=== PATIENT | female | born 1945 | race Caucasian/White ===

== ENCOUNTER 2018-12-07 16:08 | Outpatient (CLI) | payer MEDICARE, SELFPAY ==
[2018-12-07 16:33] LABS: HCT 39.4 % (36.0-46.0); Mean Corpuscular Hemoglobin 30.7 pg (27.0-33.0); Mean Corpuscular Volume 92.9 fL (80-95); Mean Platelet Volume 9.5 fL (8.0-11.0); Platelet Count 297 x1000/uL (130-400); RBC 4.24 m/cumm (4.00-5.20); RBC Distribution Width 13.5 % (11.7-14.6); White Blood Cell Count 7.16 k/cumm (4.4-10.8)
[2018-12-07 17:48] LABS: ALT 24 U/L (12-78); AST 17 U/L (15-37); Albumin 3.7 g/dL (3.4-5.0); Alkaline Phosphatase 66 U/L (46-116); BUN 22 mg/dL (7-18); Bilirubin, Total 0.3 mg/dL (0.2-1.0); CREATININE 1.24 mg/dL (0.55-1.02); Calcium 9.5 mg/dL (8.5-10.1); Chloride 103 mmol/L (98-107); Glucose 90 mg/dL (70-100); Potassium 3.7 mmol/L (3.5-5.1); Sodium 141 mmol/L (136-145); TSH 0.54 uIU/mL (0.358-3.74); Total Protein 7.4 g/dL (6.4-8.2)
== END 2018-12-07 16:28 ==
PROVIDERS: PCP Emergency Medicine; Visit Provider Emergency Medicine
DX: C34.90 Malignant neoplasm of unspecified part of unspecified bronchus or lung (principal); E03.9 Hypothyroidism, unspecified
CPT/HCPCS: 36415; 80053; 85027; 84443

== ENCOUNTER 2019-08-15 10:42 | Outpatient (CLI) | payer MEDICARE, SELFPAY ==
--- NOTE | 2019-08-15 10:10 | DI.RAD_ITS ---
EXAM: Rt hip and pelvis INDICATION: Hip pain, arthralgia of hip, m25.559,m25.50 COMPARISON: No exams were available for comparison TECHNIQUE: 2D digital imaging was performed. FINDINGS: There is mild narrowing of the right hip joint. Minimal periarticular hypertrophic spurring is identi fied. The findings are consistent with mild DJD.
--- NOTE | 2019-08-15 10:58 | DI.RAD_ITS ---
EXAM: XR KNEE LT 3V AP,LAT,MATT INDICATION: knee pain M25.50 PAIN IN JOINT. COMPARISON: No exams were available for comparison TECHNIQUE: 2D digital imaging was performed. FINDINGS: There is some narrowing of both the medial and lateral tibiofemoral joint. There is minimal periarti cular hypertrophic spurring. There is no evidence of a joint effusion. IMPRESSION: Mild degenerative changes are identified.
[2019-08-15 12:08] LABS: Abs Immature Grans 0.01 k/cumm (0.0-0.09); Absolute Basophil Count 0.04 k/cumm (0.0-0.2); Absolute Eosinophil Count 0.13 k/cumm (0.0-0.7); Absolute Lymphocyte Count 1.41 k/cumm (1.2-3.4); Absolute Monocyte Count 0.49 k/cumm (0.11-0.7); Absolute Neutrophil Count 2.89 k/cumm (1.2-6.7); Basophils % 0.8; Eosinophils % 2.6; HCT 37.9 % (36.0-46.0); HGB 12.5 g/dL (12.0-15.5); Immature Grans % 0.2; Lymphocytes % 28.4; Mean Corpuscular Hemoglobin 30.5 pg (27.0-33.0); Mean Corpuscular Volume 92.4 fL (80-95); Mean Platelet Volume 9.5 fL (8.0-11.0); Monocytes % 9.9; Neutrophils % 58.1; Platelet Count 305 x1000/uL (130-400); RBC Distribution Width 13.6 % (11.7-14.6); White Blood Cell Count 4.97 k/cumm (4.4-10.8)
[2019-08-15 12:24] LABS: ALT 29 U/L (14-59); AST 20 U/L (15-37); Albumin 3.8 g/dL (3.4-5.0); Alkaline Phosphatase 81 U/L (46-116); Anion Gap 10.3 mmol/L (3-11); BUN 29 mg/dL (7-18); Bilirubin, Total 0.4 mg/dL (0.2-1.0); C-Reactive Protein 0.31 mg/dL (0.0-0.3); CO2 24.7 mmol/L (21.0-32.0); CREATININE 1.18 mg/dL (0.55-1.02); Calcium 8.9 mg/dL (8.5-10.1); Chloride 105 mmol/L (98-107); Estimated GFR 44.77 (mL/min/1.73m2); Glucose 96 mg/dL (70-100); Sodium 140 mmol/L (136-145); Total Protein 7.3 g/dL (6.4-8.2); Uric Acid 5.9 mg/dL (2.6-6.0)
[2019-08-15 13:52] LABS: ESR 25 mm/hr (0-30)
[2019-08-16 12:30] LABS: Lyme Ab w Rflx to Lyme Confirm Negative
== END 2019-08-15 11:02 ==
PROVIDERS: PCP Emergency Medicine; Visit Provider Emergency Medicine
DX: M25.551 Pain in right hip (principal); M16.11 Unilateral primary osteoarthritis, right hip; M25.562 Pain in left knee; M17.12 Unilateral primary osteoarthritis, left knee
CPT/HCPCS: 36415; 73562; 80053; 85652; 73502; 84550; 85025; 86140; 86618

== ENCOUNTER 2019-08-29 11:33 | Outpatient (REF) | payer MEDICARE, SELFPAY ==
[2019-08-29 13:28] LABS: Clarity CLOUDY; Source L KNEE
[2019-08-29 13:29] LABS: Nucleated Cells 567 /MM3 (0-0)
[2019-08-29 13:39] LABS: Mononuclear Cells 84 % (0-0)
[2019-08-29 13:40] LABS: Other Cells 2 0 (0-0); Polynuclear Cells 14 % (0-0)
[2019-08-31 16:08] LABS: Specimen Source Synovial fluid
== END 2019-08-29 11:53 ==
LOC: LBN 11:33
PROVIDERS: PCP Emergency Medicine; Visit Provider Emergency Medicine
DX: M25.462 Effusion, left knee (principal); M17.12 Unilateral primary osteoarthritis, left knee
CPT/HCPCS: 87070; 87205; 87476; 89051

== ENCOUNTER 2019-08-29 11:39 | Outpatient (CLI) | payer MEDICARE, SELFPAY ==
--- NOTE | 2019-08-29 11:30 | DI.RAD_ITS ---
EXAM: XR CHEST 2V PA LATERAL INDICATION: ? recurrent lung cancer C34.90., H/O LUNG METS AND PRIMARY COMPARISON: CHEST 2 VIEWS PA,LAT from 09/23/2016 TECHNIQUE: 2D digital imaging was performed. FINDINGS: The lungs are well expanded and free of infiltrate. There is some thickening of the major fissures s uperiorly. No mass is seen. No evidence of a pleural effusion. The cardiovascular structures are in tact. IMPRESSION: No evidence of acute cardiopulmonary disease. If there is any further clinical question regarding the status of this patient, then further assessment with chest CT is recommended.
[2019-08-29 13:06] LABS: ALT 29 U/L (14-59); AST 18 U/L (15-37); Albumin 3.6 g/dL (3.4-5.0); Alkaline Phosphatase 67 U/L (46-116); Anion Gap 11.1 mmol/L (3-11); BUN 23 mg/dL (7-18); Bilirubin, Total 0.5 mg/dL (0.2-1.0); C-Reactive Protein 1.02 mg/dL (0.0-0.3); CO2 27.9 mmol/L (21.0-32.0); CREATININE 1.11 mg/dL (0.55-1.02); Chloride 103 mmol/L (98-107); Estimated GFR 48.05 (mL/min/1.73m2); Glucose 100 mg/dL (70-100); Potassium 3.5 mmol/L (3.5-5.1); Sodium 142 mmol/L (136-145); Total Protein 7.1 g/dL (6.4-8.2)
[2019-08-30 09:23] LABS: Cyclic Citrullinated Peptide <2.5 U/mL (<5.0)
[2019-08-30 10:26] LABS: Lyme Ab w Rflx to Lyme Confirm Negative
[2019-08-30 11:54] LABS: Rheumatoid Factor 15 IU/mL (<12.5)
== END 2019-08-29 11:59 ==
PROVIDERS: PCP Emergency Medicine; Visit Provider Emergency Medicine
DX: C34.90 Malignant neoplasm of unspecified part of unspecified bronchus or lung (principal); M19.90 Unspecified osteoarthritis, unspecified site; M25.50 Pain in unspecified joint
CPT/HCPCS: 36415; 80053; 86200; 71046; 86140; 86431; 86618

== ENCOUNTER 2019-09-05 01:45 | Outpatient (CLI) | payer MEDICARE, SELFPAY ==
--- NOTE | 2019-09-05 09:37 | DI.NM_ITS ---
EXAM: NM BONE SCAN WHOLE BODY GRP CLINICAL HISTORY: Polyarthritis with history of lung cancer RUL, M19.90, unspecified osteoarthritis, right hip and left knee pain x months, fractured wrist many years ago, left lower filling 2 weeks ag o. TECHNIQUE: Injected Dose: 23 mCi Tc-99m MDP Delayed Images: 2-3 hours. COMPARISON: SINUS CT WITHOUT CONTRAST from 12/05/2014 CHEST WITHOUT CONTRAST from 12/24/2016 XR KNEE LT 3V AP,LAT,MATT from 08/15/2019 XR HIP RT COMPLETE AP PELVIS from 08/15/2019 FINDINGS: There are multiple areas of mildly increased activity in the thoracic and lumbar spine consistent wit h degenerative changes noted on previous exams. There is a small area of increased activity in the le ft side of the lower mandible anteriorly consistent with recent dental work. There is increased activ ity in the region of the left patella, likely reflecting degenerative changes. The activity in the hi ps appears normal. There is a focus of increased activity in the upper cervical spine. No prior imagi ng is available of this area. The findings may be secondary to degenerative changes. Bilateral renal excretion is identified. . IMPRESSION: No definite evidence of metastatic disease. There is increased activity in the upper cervical spine, which could be secondary to degenerative change. Plain films could be performed for further evaluatio n.
== END 2019-09-05 02:05 ==
PROVIDERS: PCP Emergency Medicine; Visit Provider Emergency Medicine
DX: M19.90 Unspecified osteoarthritis, unspecified site (principal); M25.551 Pain in right hip; M25.562 Pain in left knee; M47.815 Spondylosis without myelopathy or radiculopathy, thoracolumbar region; M17.12 Unilateral primary osteoarthritis, left knee; Z85.118 Personal history of other malignant neoplasm of bronchus and lung
CPT/HCPCS: 78306

== ENCOUNTER 2020-05-06 00:59 | Outpatient (CLI) | payer MEDICARE, SELFPAY ==
[2020-05-06 09:28] LABS: Abs Immature Grans 0.01 k/cumm (0.0-0.09); Absolute Basophil Count 0.03 k/cumm (0.0-0.2); Absolute Eosinophil Count 0.13 k/cumm (0.0-0.7); Absolute Lymphocyte Count 1.45 k/cumm (1.2-3.4); Absolute Monocyte Count 0.57 k/cumm (0.11-0.7); Absolute Neutrophil Count 2.94 k/cumm (1.2-6.7); Basophils % 0.6; Eosinophils % 2.5; HCT 38.7 % (36.0-46.0); Immature Grans % 0.2 %; Lymphocytes % 28.3; Mean Corp. HGB Concentration 33.6 g/dL (32.0-36.0); Mean Corpuscular Hemoglobin 30.8 pg (27.0-33.0); Mean Corpuscular Volume 91.7 fL (80-95); Mean Platelet Volume 9.8 fL (8.0-11.0); Monocytes % 11.1; Neutrophils % 57.3; Platelet Count 293 x1000/uL (130-400); RBC 4.22 m/cumm (4.00-5.20); RBC Distribution Width 13.8 % (11.7-14.6); White Blood Cell Count 5.13 k/cumm (4.4-10.8)
[2020-05-06 10:51] LABS: ALT 27 U/L (14-59); AST 21 U/L (15-37); Albumin 3.9 g/dL (3.4-5.0); Alkaline Phosphatase 81 U/L (46-116); Anion Gap 9.1 mmol/L (3-11); BUN 26 mg/dL (7-18); Bilirubin, Total 0.5 mg/dL (0.2-1.0); C-Reactive Protein 0.16 mg/dL (0.0-0.3); CO2 27.9 mmol/L (21.0-32.0); Calcium 9.1 mg/dL (8.5-10.1); Chloride 103 mmol/L (98-107); Estimated GFR 36.76 (mL/min/1.73m2); Glucose 92 mg/dL (74-106); Potassium 3.7 mmol/L (3.5-5.1); Sodium 140 mmol/L (136-145); Total Protein 7.4 g/dL (6.4-8.2)
[2020-05-06 11:08] LABS: ESR 19 mm/hr (0-30)
== END 2020-05-06 01:19 ==
PROVIDERS: PCP Emergency Medicine; Visit Provider Emergency Medicine
DX: I10 Essential (primary) hypertension (principal); E03.9 Hypothyroidism, unspecified; R53.83 Other fatigue
CPT/HCPCS: 36415; 80053; 85652; 84443; 85025; 86140

== ENCOUNTER 2020-12-16 15:03 | Outpatient (REF) | payer MEDICARE, SELFPAY ==
[2020-12-16 14:29] LABS: Anion Gap 9.9 mmol/L (3-11); BUN 22 mg/dL (7-18); CO2 26.1 mmol/L (21.0-32.0); CREATININE 1.13 mg/dL (0.55-1.02); Calcium 9.3 mg/dL (8.5-10.1); Chloride 103 mmol/L (98-107); Estimated GFR 46.94 (mL/min/1.73m2); Glucose 93 mg/dL (74-106); Potassium 3.7 mmol/L (3.5-5.1); Sodium 139 mmol/L (136-145)
== END 2020-12-16 15:23 ==
LOC: LBN 15:03
PROVIDERS: PCP Emergency Medicine; Visit Provider Emergency Medicine
DX: I10 Essential (primary) hypertension (principal)
CPT/HCPCS: 80048

== ENCOUNTER 2022-04-12 04:12 | Outpatient (CLI) | payer MEDICARE, SELFPAY ==
[2022-04-12 12:54] LABS: Bilirubin Negative (Negative); Blood Negative (Negative); Clarity Clear (Clear); Glucose Negative (Negative); Ketones Negative (Negative); Leukocyte Esterase Trace (Negative); Nitrite Negative (Negative); Urobilinogen 0.2 EU/dL (Up TO 0.2); pH 5.5 (5-8)
[2022-04-12 13:03] LABS: Bacteria Few HPF (Negative); C & S Indicated? No/Sq. Contamination; Casts Negative LPF (Negative); Crystals Negative HPF (Negative); Epithelial Cells Moderate HPF (Negative); Mucus Trace (Negative); Other Cells Negative (Negative); RBC 0-2 HPF (0-2)
[2022-04-12 13:10] LABS: HCT 37.3 % (36.0-46.0); HGB 12.1 g/dL (11.2-15.7); MCH 30.2 pg (27.0-33.0); MCHC 32.4 % (32.0-36.0); MCV 93 fL (80-95); Platelet Count 260 10^3/uL (130-400); RBC 4.01 10^6/uL (3.93-5.22); RDW 13.5 % (11.7-14.6); WBC 6.63 10^3/uL (4.4-10.8)
[2022-04-12 13:22] LABS: ALT 30 U/L (14-59); AST 27 U/L (15-37); Albumin 3.7 g/dL (3.4-5.0); Alkaline Phosphatase 63 U/L (46-116); Anion Gap 8.9 mmol/L (3-11); BUN 25 mg/dL (7-18); Bilirubin, Total 0.6 mg/dL (0.2-1.0); CO2 27.1 mmol/L (21.0-32.0); CREATININE 1.2 mg/dL (0.55-1.02); Chloride 106 mmol/L (98-107); Estimated GFR 43.68 (mL/min/1.73m2); Glucose 97 mg/dL (74-106); Lipase 150 U/L (73-393); Potassium 3.8 mmol/L (3.5-5.1); Sodium 142 mmol/L (136-145); Total Protein 7.1 g/dL (6.4-8.2)
[2022-04-12 17:06] LABS: Calculated LDL 120 mg/dL (<100); Cholesterol 225 mg/dL (<200); HDL Cholesterol 87 mg/dL (40-60); Triglyceride 92 mg/dL (<150)
== END 2022-04-12 04:13 | disposition home or self-care (01) ==
LOC: LOS 04:12
PROVIDERS: PCP Family Medicine; Visit Provider Family Medicine
DX: E78.5 Hyperlipidemia, unspecified (principal); I10 Essential (primary) hypertension; R10.9 Unspecified abdominal pain; R82.998 Other abnormal findings in urine
CPT/HCPCS: 36415; 80053; 80061; 83690; 85027; 81003; 81015

== ENCOUNTER → 2022-05-13 10:52 | Outpatient (CLI) | payer MEDICARE, SELFPAY ==
[2022-05-13] MEDS: Barium Sulfate 2% W/V-Berry Smoothie 450 ML BTL PO (13:41)
--- NOTE | 2022-05-13 13:45 | DI.CT_ITS ---
Exam(s) CT ABDOMEN PELVIS WO EXAM: CT ABDOMEN PELVIS WO CLINICAL HISTORY: diverticulitis, K57.92. TECHNIQUE: Imaging Protocol: Axial computed tomography images with coronal and sagittal reformatted images were created and reviewed. Oral: yes, barium COMPARISON: No exams were available for comparison FINDINGS: ABDOMEN: Lung Bases: Normal where visualized. Liver: Normal density. No measurable mass. Gallbladder and biliary tract: Status post cholecystectomy. No radiodense calculus or dilation. Stom ach: Small hiatal hernia. Pancreas: Normal density, no abnormal calcifications or inflammatory process. Spleen: Normal. Kidneys: Normal size, contour and axis. No radiodense stones or obstructive uropathy. No masses seen. Adrenal glands: No masses seen. Lymph nodes: Within normal limits. Abdominal Aorta: Abdominal portion non-dilated. Atherosclerotic calcifications. PELVIS: Bladder: Symmetric distention, no gross wall thickening. Bowel: Diverticulosis throughout. Prominent diverticulosis in the sigmoid region. Some wall thicken ing in the sigmoid which could be secondary to muscular hypertrophy. No evidence of diverticulitis. No obstruction or bowel wall thickening. Peritoneal cavity: No ascites, collection or mesenteric inflammatory response. Reproductive organs: Status post hysterectomy. Bones: Severe degenerative disc changes as well as facet degenerative changes. No compression fractu res. No pelvic fractures. IMPRESSION: Severe diverticulosis in the sigmoid region. No CT evidence of diverticulitis. RADIATION DOSE DELIVERED: 763.25mGy.cm Total DLP DATA REPOSITORY: All CT scans at this facility are submitted to the National Radiology Data Registry (NRDR) Dose Index Registry (DIR) with the [employer] (ACR). RADIATION OPTIMIZATION: All CT scans at this facility use at least one of these dose optimization te chniques: automated exposure control; mA and/or kV adjustment per patient size (includes targeted exa ms where dose is matched to clinical indication); or iterative reconstruction.
== END ==
PROVIDERS: PCP Family Medicine; Visit Provider Physician Assistant
DX: K57.30 Diverticulosis of large intestine without perforation or abscess without bleeding (principal)
CPT/HCPCS: 74176

== ENCOUNTER 2022-05-17 03:38 | Outpatient (CLI) | payer MEDICARE, SELFPAY ==
[2022-05-17 12:40] LABS: Abs Immature Grans 0.02 10^3/uL (0.0-0.06); Absolute Basophil Count 0.04 10^3/uL (0.0-0.2); Absolute Eosinophil Count 0.37 10^3/uL (0.0-0.7); Absolute Lymphocyte Count 1.06 10^3/uL (1.2-3.4); Absolute Monocyte Count 0.73 10^3/uL (0.1-0.8); Absolute Neutrophil Count 3.25 10^3/uL (1.2-6.7); Basophils % 0.7; Eosinophils % 6.8; HGB 12.4 g/dL (11.2-15.7); Immature Grans % 0.4; Lymphocytes % 19.4; MCH 31.9 pg (27.0-33.0); MCHC 34.4 % (32.0-36.0); MCV 93 fL (80-95); MPV 10.2 fL (8.0-11.0); Monocytes % 13.3; Neutrophils % 59.4; Platelet Count 241 10^3/uL (130-400); RBC 3.89 10^6/uL (3.93-5.22); RDW 13.3 % (11.7-14.6); RDW-SD 45.7 fL; WBC 5.47 10^3/uL (4.4-10.8)
[2022-05-17 13:08] LABS: ALT 25 U/L (14-59); AST 24 U/L (15-37); Albumin 3.6 g/dL (3.4-5.0); Alkaline Phosphatase 59 U/L (46-116); Anion Gap 10.5 mmol/L (3-11); BUN 24 mg/dL (7-18); Bilirubin, Total 0.6 mg/dL (0.2-1.0); CO2 28.5 mmol/L (21.0-32.0); CREATININE 1.3 mg/dL (0.55-1.02); Calcium 8.9 mg/dL (8.5-10.1); Chloride 100 mmol/L (98-107); Estimated GFR 39.82 (mL/min/1.73m2); Glucose 93 mg/dL (74-106); Potassium 3.5 mmol/L (3.5-5.1); Sodium 139 mmol/L (136-145); Total Protein 7.3 g/dL (6.4-8.2)
== END 2022-05-17 03:39 | disposition home or self-care (01) ==
LOC: LOS 03:38
PROVIDERS: PCP Family Medicine; Visit Provider Physician Assistant
DX: K57.92 Diverticulitis of intestine, part unspecified, without perforation or abscess without bleeding (principal); R10.32 Left lower quadrant pain
CPT/HCPCS: 36415; 80053; 85025

== ENCOUNTER 2022-09-16 03:49 | Outpatient (CLI) | payer MEDICARE, SELFPAY ==
[2022-09-16 12:47] LABS: BUN 23 mg/dL (7-18); CREATININE 1.2 mg/dL (0.55-1.02); Calcium 9.3 mg/dL (8.5-10.1); Chloride 103 mmol/L (98-107); Estimated GFR 46.62 (mL/min/1.73m2); Glucose 95 mg/dL (74-106); Potassium 3.6 mmol/L (3.5-5.1); Sodium 139 mmol/L (136-145); TSH (W/Ref FT4) 0.58 uIU/mL (0.36-3.74)
[2022-09-16 12:48] LABS: Hemoglobin A1C 5.8 % (<5.7)
== END 2022-09-16 03:50 | disposition home or self-care (01) ==
LOC: LOS 03:49
PROVIDERS: PCP Family Medicine; Visit Provider Dermatology
DX: I10 Essential (primary) hypertension (principal); E04.2 Nontoxic multinodular goiter
CPT/HCPCS: 36415; 80048; 83036; 84443

== ENCOUNTER 2023-01-28 13:00 | Outpatient (CLI) | payer MEDICARE, SELFPAY ==
--- NOTE | 2023-01-28 13:40 | DI.CT_ITS ---
Exam(s) CT HEAD WO EXAM: CT HEAD WO CLINICAL HISTORY: headaches, R51.9. TECHNIQUE: Imaging Protocol: Axial computed tomography images with coronal and sagittal reformatted images were created and reviewed COMPARISON: CT SINUS CT WITHOUT CONTRAST from 12/05/2014 FINDINGS: Ventricles and Extra axial spaces: Normal in size and morphology for the patient's age. Hemorrhage: None. Cerebral parenchyma: There are areas of decreased attenuation in the white matter most consistent wit h small vessel ischemic disease. No evidence of an acute territorial infarct is seen. Midline shift: None. Brainstem/Cerebellum: Normal. Calvarium: Normal. Visualized Paranasal sinuses/Mastoids: Clear. Soft Tissues: Unremarkable. IMPRESSION: No acute intracranial process. RADIATION DOSE DELIVERED: 674.81mGy.cm Total DLP DATA REPOSITORY: All CT scans at this facility are submitted to the National Radiology Data Registry (NRDR) Dose Index Registry (DIR) with the [employer] (ACR). RADIATION OPTIMIZATION: All CT scans at this facility use at least one of these dose optimization te chniques: automated exposure control; mA and/or kV adjustment per patient size (includes targeted exa ms where dose is matched to clinical indication); or iterative reconstruction.
== END 2023-01-28 13:20 ==
LOC: DI 13:01
PROVIDERS: PCP Family Medicine; Visit Provider Physician Assistant
DX: R51.9 Headache, unspecified (principal)
CPT/HCPCS: 70450

== ENCOUNTER 2023-01-28 15:04 | Outpatient (REF) | payer MEDICARE, SELFPAY ==
[2023-01-28 13:36] LABS: Abs Immature Grans 0.02 10^3/uL (0.0-0.06); Absolute Basophil Count 0.08 10^3/uL (0.0-0.2); Absolute Eosinophil Count 0.15 10^3/uL (0.0-0.7); Absolute Lymphocyte Count 1.31 10^3/uL (1.2-3.4); Absolute Monocyte Count 0.71 10^3/uL (0.1-0.8); Absolute Neutrophil Count 4.48 10^3/uL (1.2-6.7); Basophils % 1.2; Eosinophils % 2.2; HCT 36.7 % (36.0-46.0); HGB 12.6 g/dL (11.2-15.7); Immature Grans % 0.3; Lymphocytes % 19.4; MCH 31.3 pg (27.0-33.0); MCHC 34.3 % (32.0-36.0); MCV 91 fL (80-95); MPV 10.8 fL (8.0-11.0); Monocytes % 10.5; Neutrophils % 66.4; Platelet Count 261 10^3/uL (130-400); RBC 4.03 10^6/uL (3.93-5.22); RDW 13.3 % (11.7-14.6); RDW-SD 45.2 fL; WBC 6.75 10^3/uL (4.4-10.8)
[2023-01-28 13:43] LABS: ESR 19 mm/hr (0-30)
== END 2023-01-28 15:05 | disposition home or self-care (01) ==
LOC: LBN 15:04
PROVIDERS: PCP Family Medicine; Visit Provider Physician Assistant
DX: R51.9 Headache, unspecified (principal); B02.23 Postherpetic polyneuropathy
CPT/HCPCS: 85652; 85025

== ENCOUNTER 2023-04-28 01:20 | Outpatient (CLI) | payer MEDICARE, SELFPAY ==
--- NOTE | 2023-04-28 08:15 | DI.US_ITS ---
Exam(s) US THYROID EXAM: US THYROID CLINICAL HISTORY: assess for change since 2017,f/u multinodular goiter,e04.2. TECHNIQUE: Ultrasound thyroid performed using standard protocol. COMPARISON: US THYROID ULTRASOUND from 08/19/2017 FINDINGS: ISTHMUS: 3.7 mm RIGHT LOBE: Size: 5.3 x 1.6 x 2.0 cm Echogenicity: Normal. Vascularity: Normal. Nodules: There is a 1.0 x 0.4 x 0.9 cm mixed cystic and solid isoechoic nodule with punctate echogeni c foci. It is consistent with a TI rads level 4 nodule. Due to its size, follow-up is recommended. There are other right thyroid nodules, but none requiring follow-up or FNA. LEFT LOBE: Size: 5.0 x 2.1 x 2.0 cm Echogenicity: Normal. Vascularity: Normal. Nodules: There is a 2.9 x 2.0 x 2.4 cm solid isoechoic nodule. No echogenic foci. Findings are cons istent with a TI rads level 3 nodule. Due to its size, FNA is recommended. There are other left thy roid nodules, but none requiring follow-up or FNA. OTHER FINDINGS: None. IMPRESSION: Multinodular thyroid gland. Please see the above discussion for complete details. DATA REPOSITORY:
== END 2023-04-28 01:40 ==
LOC: DI 01:20
PROVIDERS: PCP Family Medicine; Visit Provider Otolaryngology
DX: E04.2 Nontoxic multinodular goiter (principal)
CPT/HCPCS: 76536

== ENCOUNTER 2023-05-31 00:55 | Outpatient (CLI) | payer MEDICARE, SELFPAY ==
--- NOTE | 2023-05-31 07:30 | DI.RAD_ITS ---
Exam(s) XR KNEE LT 3V AP,LAT,MATT EXAM: XR KNEE LT 3V AP,LAT,MATT CLINICAL HISTORY: left knee pain, h/o OA,M17.12. TECHNIQUE: 2D digital imaging was performed. COMPARISON: No exams were available for comparison FINDINGS: Four views. No evidence of fracture but there are advanced degenerative changes in the lateral compartment and th ere is a loose body at the mid aspect of joint space noted which measures approximately 8 x 8 mm. Mi lder degenerative changes are noted in medial compartment. Joint effusion noted. IMPRESSION: Degenerative changes. Loose intra-articular body. Joint effusion DATA REPOSITORY: RADIATION DOSE DELIVERED:
== END 2023-05-31 01:15 ==
LOC: DI 00:56
PROVIDERS: PCP Family Medicine; Visit Provider Family Medicine
DX: M17.12 Unilateral primary osteoarthritis, left knee (principal); M25.462 Effusion, left knee
CPT/HCPCS: 73562

== ENCOUNTER → 2023-06-06 09:19 | Outpatient (BNVA) | payer MEDICARE, SELFPAY | PROVIDERS: PCP Family Medicine; Referring Provider Family Medicine | DX: M17.12 Unilateral primary osteoarthritis, left knee (principal) | CPT/HCPCS: 99203 ==

== ENCOUNTER 2023-06-07 00:48 | Outpatient (CLI) | payer MEDICARE, SELFPAY ==
--- NOTE | 2023-06-07 07:45 | DI.US_ITS ---
Exam(s) US NEEDLE LOCAL OTHER WO RAD EXAM: Left TR 4 thyroid nodule,ultrasound guided bx,e04.2 COMPARISON: US US THYROID from 04/28/2023 TECHNIQUE: Ultrasound performed using standard protocol. FINDINGS: Sonography was provided for Dr. Miguel during the performance of a left thyroid biopsy. Please refe r to the procedure report for complete details. DATA REPOSITORY:
--- NOTE | 2023-06-07 11:30 | PAPNONF_PTH ---
PATIENT: Gayathri Key LOC: [facility] U#:[id number] AGE/SX: 77/F ROOM: RE06/07/[address]: Roshan Miguel MD : 1945 BED: DIS: 06/07/2023 SPEC #: [id number] RECD: 06/07/23 12:12 STATUS: ARTURO RENess #: [id number] SARKIS: 06/07/23 11:[address]: Roshan Miguel DEPT: [facility] Cytology RECD BY: Pily Francisco ENTERED: 06/07/23 12:14 SP TYPE: MEHRDAD MARINO DR: Erika Hernandez Tissues: 1 - BODY FLUID CYTO-FINE NEEDLE [facility] Procedures: BODY FLUID CYTO-FINE NEEDLE ASPIRATE[facility] Comments: [id number] (PATH FNA CONSULT) (REFRIGERATED)
--- NOTE | 2023-06-07 11:55 | W.PROCNOTE ---
Date of service: 06/07/23 Time of Service: 11:56 Procedure Note Date of procedure: 06/07/23 Procedure: Ultrasound-guided FNA, left thyroid nodule, pathology present Surgeon/Proceduralist/Physician: Roshan Miguel Procedure Diagnosis: Left thyroid nodule Procedure Indications: Patient has a left-sided thyroid nodule meeting criteria for biopsy. Previous biopsy was benign. This was done several years ago. Options were explained to the patient regarding further management. She elected to undergo the above procedure. Consent was filled out and signed prior to the procedure Procedure Description: The patient was positioned in supine position and prepped and draped in appropriate fashion. Her head was slightly extended. Ultrasound was used to localize the 2.9 cm mixed cystic/solid nodule in the left and then 1% lidocaine with 1/100,000 epinephrine injected medial to the nodule. Multiple passes were made into the thyroid nodule using a 25-gauge needle. Specimens demonstrated large numbers of macrophages, but no specific thyroid cells when examined by pathology. The significant amount of the debris that was aspirated was cystic content and was placed into CytoLyt for further analysis. After discussion with the patient, the decision was made not to biopsy any further, as the nodule has previously been biopsied and found to be benign, and the samples today suggest just a degenerated nodule. 2 passes were made for potential Afirma testing. After ensuring adequate hemostasis, sterile dressing was applied and the patient was able to ambulate afterwards without difficulty. Her vital signs remained stable. She is aware that she should call with any signs of infection. She will remove the bandage later on today. She will call if she does not hear from me within 1 week. She had no further questions. She is comfortable with this plan.
== END 2023-06-07 01:08 ==
LOC: DI 00:50
PROVIDERS: PCP Family Medicine; Visit Provider Otolaryngology
DX: E04.2 Nontoxic multinodular goiter (principal)
CPT/HCPCS: 10005; 76942; 88104

== ENCOUNTER 2023-09-13 02:56 | Outpatient (CLI) | payer MEDICARE, SELFPAY ==
[2023-09-13 13:11] LABS: ALT 20 U/L (14-59); AST 17 U/L (15-37); Albumin 3.3 g/dL (3.4-5.0); Alkaline Phosphatase 61 U/L (46-116); Anion Gap 9.6 mmol/L (3-11); BUN 19 mg/dL (7-18); Bilirubin, Total 0.5 mg/dL (0.2-1.0); CO2 25.4 mmol/L (21.0-32.0); CREATININE 1.1 mg/dL (0.55-1.02); Calcium 9.3 mg/dL (8.5-10.1); Chloride 105 mmol/L (98-107); Estimated GFR 51.43 (mL/min/1.73m2); Glucose 90 mg/dL (74-106); Potassium 3.9 mmol/L (3.5-5.1); Sodium 140 mmol/L (136-145); Total Protein 7.2 g/dL (6.4-8.2)
== END 2023-09-13 02:57 | disposition home or self-care (01) ==
LOC: LOS 02:56
PROVIDERS: PCP Family Medicine; Visit Provider Family Medicine
DX: N18.30 Chronic kidney disease, stage 3 unspecified (principal); Z00.00 Encounter for general adult medical examination without abnormal findings
CPT/HCPCS: 36415; 80053

== ENCOUNTER → 2024-03-09 01:21 | Outpatient (CLI) | payer MEDICARE, SELFPAY ==
--- NOTE | 2024-03-09 07:30 | DI.CT_ITS ---
Exam(s) CT CHEST W EXAM: CT CHEST W CLINICAL HISTORY: f/u lung ca,c34.90 TECHNIQUE: Imaging Protocol: Axial computed tomography images with coronal and sagittal reformatted images were created and reviewed CONTRAST MATERIAL: Intravenous: Omnipaque 350 Contrast volume:structured data ml. FINDINGS: Thyroid: Decreased size of previously noted nodule in the lower pole of the left lobe. Pulmonary parenchyma: No consolidation. Stable 6 millimeter nodule in the left lower lobe. Mild emph ysematous changes. Postsurgical changes in the right upper lobe. Scattered granulomas. Tracheobronchial tree: No bronchiectasis or mucous plugging. Mediastinum and Lexi: No dominant adenopathy or fluid collection. Question of tiny hiatal hernia. Pleura: No effusion. No pneumothorax. Heart: The heart is not dilated. Coronary artery calcifications/stents. Aorta: Thoracic aorta non-dilated. Mild atherosclerotic changes. Upper abdomen: No acute findings. Status post cholecystectomy. Bones: No lytic or blastic lesions. No compression fractures. Severe degenerative changes in th e spine. Soft tissues: Unremarkable. IMPRESSION: No evidence recurrence mass. No adenopathy. Stable 6 millimeter nodule left lower lobe. RADIATION DOSE DELIVERED: 389.45mGy.cm Total DLP DATA REPOSITORY: All CT scans at this facility are submitted to the National Radiology Data Registry (NRDR) Dose Index Registry (DIR) with the [employer] (ACR). RADIATION OPTIMIZATION: All CT scans at this facility use at least one of these dose optimization te chniques: automated exposure control; mA and/or kV adjustment per patient size (includes targeted exa ms where dose is matched to clinical indication); or iterative reconstruction.
[2024-03-09 09:24] LABS: CREATININE 1.3 mg/dL (0.55-1.02); Estimated GFR 42.09 (mL/min/1.73m2)
[2024-03-09] MEDS: Omnipaque 350 MG/ML 500 ML BTL-Imaging package 100 ML IJ (09:47)
[2024-03-09] MEDS: Normal Saline - Diluent 50 ML VIAL IJ (09:48)
[2024-03-09] MEDS: Normal Saline Flush 10 ML SYR IJ (09:50)
== END ==
PROVIDERS: PCP Family Medicine; Visit Provider Family Medicine
DX: C34.92 Malignant neoplasm of unspecified part of left bronchus or lung (principal)
CPT/HCPCS: 71260; 82565

== ENCOUNTER → 2024-05-01 01:35 | Outpatient (CLI) | payer MEDICARE, SELFPAY ==
--- NOTE | 2024-05-01 08:00 | DI.US_ITS ---
Exam(s) US THYROID EXAM: US THYROID CLINICAL HISTORY: Assess for change,multinodular thyroid,e04.2. TECHNIQUE: Ultrasound thyroid performed using standard protocol. COMPARISON: US US THYROID from 04/28/2023 FINDINGS: ISTHMUS: 4 mm RIGHT LOBE: Size: 5.0 x 1.5 x 2.4 cm Echogenicity: Normal. Vascularity: Normal. Nodules: There again seen multiple thyroid nodules. There has been no significant change in appearan ce of the thyroid nodules. There is again seen a 1.2 x 0.4 x 1.0 cm mixed hypoechoic nodule in the m id right thyroid gland. Echogenic foci are seen. It is consistent with a TI rads level 4 nodule. D ue to its size, follow-up is recommended. The next largest nodule measures 0.9 cm. It is consistent with a TI rads 4 notch. Due to its size, no follow-up is recommended. LEFT LOBE: Size: 5.5 x 2.2 x 2.1 cm Echogenicity: Normal. Vascularity: Normal. Nodules: There is again seen a dominant nodule in the inferior left lobe measuring 2.9 x 1.6 x 2.5 cm . It is grossly unchanged compared to the prior examination. It is a mixed hypoechoic nodule with e chogenic foci. This nodule is consistent with a TI rads 4 nodule. It has been biopsied previously. OTHER FINDINGS: None. IMPRESSION: Stable bilateral thyroid nodules. DATA REPOSITORY:
== END ==
PROVIDERS: PCP Family Medicine; Visit Provider Otolaryngology
DX: E04.2 Nontoxic multinodular goiter (principal)
CPT/HCPCS: 76536

== ENCOUNTER → 2024-05-25 10:54 | Outpatient (CLI) | payer MEDICARE, SELFPAY ==
--- NOTE | 2024-05-25 09:52 | DI.RAD_ITS ---
Exam(s) XR KNEE LT 3V AP,LAT,MATT EXAM: XR KNEE LT 3V AP,LAT,MATT CLINICAL HISTORY: Primary localized OA of lt knee, M17.12. TECHNIQUE: 2D digital imaging was performed. COMPARISON: CR XR KNEE LT 3V AP,LAT,MATT from 05/31/2023 FINDINGS: 3 views No evidence of acute fracture. Small joint effusion noted. There is a calcified loose body in the mid aspect of the joint. On the lateral view there is suggest ion of possible osteochondral defect in 1 of the femoral condyles. There is advanced joint space narrowing of the lateral compartment again noted with relative preserva tion of height of the medial compartment. IMPRESSION: Advanced degenerative changes in the lateral compartment. Loose intra-articular body. Small joint e ffusion. DATA REPOSITORY: RADIATION DOSE DELIVERED:
--- NOTE | 2024-05-25 09:52 | DI.RAD_ITS ---
Exam(s) XR KNEE RT 3V AP,LAT,MATT EXAM: XR KNEE RT 3V AP,LAT,MATT CLINICAL HISTORY: Primary localized OA of rt knee, M17.11. TECHNIQUE: 2D digital imaging was performed. COMPARISON: CR XR KNEE LT 3V AP,LAT,MATT from 08/15/2019 CR XR KNEE LT 3V AP,LAT,MATT from 05/31/2023 CR XR KNEE LT 3V AP,LAT,MATT from 05/25/2024 FINDINGS: 3 views No evidence of fracture but there is a moderate size joint effusion. Degenerative changes are noted, most prominent in the lateral compartment where there is [id number] narrowing and marginal osteoph ytes. Minimal narrowing of the medial compartment. Moderate degenerative changes in tail of femoral compartment. Bone density normal. No osseous lesions. IMPRESSION: Degenerative changes, most prominent in the lateral compartment which is similar to the opposite side . DATA REPOSITORY: RADIATION DOSE DELIVERED:
== END ==
PROVIDERS: PCP Family Medicine; Visit Provider Family Medicine
DX: M17.11 Unilateral primary osteoarthritis, right knee (principal); M17.12 Unilateral primary osteoarthritis, left knee
CPT/HCPCS: 36415; 73562; 80048

== ENCOUNTER 2024-05-25 11:06 | Outpatient (CLI) | payer MEDICARE, SELFPAY ==
[2024-05-25 11:33] LABS: Anion Gap 6.1 mmol/L (3-11); BUN 25 mg/dL (7-18); CO2 29.9 mmol/L (21.0-32.0); CREATININE 1.2 mg/dL (0.55-1.02); Calcium 9.6 mg/dL (8.5-10.1); Chloride 104 mmol/L (98-107); Estimated GFR 46.33 (mL/min/1.73m2); Glucose 104 mg/dL (74-106); Potassium 4.3 mmol/L (3.5-5.1); Sodium 140 mmol/L (136-145)
== END 2024-05-25 11:07 | disposition home or self-care (01) ==
LOC: LBO 11:07
PROVIDERS: PCP Family Medicine; Visit Provider Family Medicine
DX: I10 Essential (primary) hypertension (principal)
CPT/HCPCS: 36415; 80048

== ENCOUNTER → 2024-07-16 07:50 | Outpatient (BNVA) | payer MEDICARE, SELFPAY | PROVIDERS: PCP Family Medicine; Referring Provider Family Medicine; Visit Provider Student in an Organized Health Care Education/Training Program | DX: M17.0 Bilateral primary osteoarthritis of knee | CPT/HCPCS: 20610; J1010 ==

== ENCOUNTER 2024-09-27 02:14 | Outpatient (CLI) | payer MEDICARE, SELFPAY ==
--- NOTE | 2024-09-27 07:10 | DI.DEXA_ITS ---
Exam(s) XR DEXA BONE DENSITY W/WO RASHEEDA EXAM: XR DEXA BONE DENSITY W/WO RASHEEDA CLINICAL HISTORY: screening,menopausal disorder,n95.9 TECHNIQUE: COMPARISON: No exams were available for comparison FINDINGS: Lateral Spine Image: Unremarkable. No compression deformities identified. Left hip: Total T-Score: -1.2 Total Z-Score: 0.8 T- and Z-scores: Findings are consistent with osteopenia. Lumbar Spine: Total T-Score: 5.5 Total Z-Score: 8.2 T- and Z-scores: Within normal limits. IMPRESSION: No evidence of osteoporosis.
== END 2024-09-27 02:34 ==
LOC: DI 02:14
PROVIDERS: PCP Family Medicine; Visit Provider Family Medicine
DX: N95.9 Unspecified menopausal and perimenopausal disorder (principal); Z13.820 Encounter for screening for osteoporosis
CPT/HCPCS: 36415; 77080; 80048

== ENCOUNTER 2024-09-27 03:38 | Outpatient (CLI) | payer MEDICARE, SELFPAY ==
[2024-09-27 10:48] LABS: Anion Gap 9.9 mmol/L (3-11); BUN 33 mg/dL (7-18); CO2 25.1 mmol/L (21.0-32.0); CREATININE 1.3 mg/dL (0.55-1.02); Calcium 9.5 mg/dL (8.5-10.1); Chloride 104 mmol/L (98-107); Estimated GFR 41.83 (mL/min/1.73m2); Glucose 94 mg/dL (74-106); Potassium 4.5 mmol/L (3.5-5.1); Sodium 139 mmol/L (136-145)
== END 2024-09-27 03:39 | disposition home or self-care (01) ==
LOC: LBO 03:38
PROVIDERS: PCP Family Medicine; Visit Provider Family Medicine
DX: I10 Essential (primary) hypertension (principal); N18.31 Chronic kidney disease, stage 3a
CPT/HCPCS: 36415; 80048

== ENCOUNTER → 2024-10-22 10:07 | Outpatient (BNVA) | payer MEDICARE, SELFPAY | PROVIDERS: PCP Family Medicine; Referring Provider Family Medicine; Visit Provider Student in an Organized Health Care Education/Training Program | DX: M17.11 Unilateral primary osteoarthritis, right knee (principal); M17.12 Unilateral primary osteoarthritis, left knee | CPT/HCPCS: 20610; J1010 ==

== ENCOUNTER → 2025-01-24 14:04 | Outpatient (BNVA) | payer MEDICARE, SELFPAY | PROVIDERS: PCP Family Medicine; Referring Provider Family Medicine; Visit Provider Student in an Organized Health Care Education/Training Program | DX: R13.19 Other dysphagia (principal); K44.9 Diaphragmatic hernia without obstruction or gangrene; K21.00 Gastro-esophageal reflux disease with esophagitis, without bleeding | CPT/HCPCS: 99214 ==

== ENCOUNTER 2025-01-30 03:26 | Outpatient (CLI) | payer MEDICARE, SELFPAY ==
--- NOTE | 2025-01-30 06:30 | DI.RAD_ITS ---
Exam(s) RF BARIUM SWALLOW EXAM: RF BARIUM SWALLOW CLINICAL HISTORY: GERD and known hiatal hernia,K44.9,K21.00 TECHNIQUE: 2D and realtime digital imaging was performed. CONTRAST MATERIAL: Oral barium Oral water soluble contrast was administered. COMPARISON: No exams were available for comparison FINDINGS: CHEST X-RAY: The heart and pulmonary vasculature are within normal limits. The lungs are clear. No pl eural effusion or pneumothorax is present. The bones are within normal limits for the patient's age. 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 ESOPHAGRAM: The esophagus is patent with no evidence for erosions, fold thickening, strictures, or ma sses. With regards to the motility, there is a normal primary stripping wave. The looks to be a small hiatal hernia. There is no gastroesophageal reflux. During the examination, a pill the patient swa llowed settled in the vallecula. The patient was able to clear the pill with additional water. IMPRESSION: 1. No evidence of stricture or gastroesophageal reflux. 2. During the examination a barium tablet that the swallowed settled in the vallecula. The patient n oted at this was consistent with the sensation she gets when eating. The patient was able to clear t he pill with additional water. 3. No penetration or aspiration was noted during the examination. RADIATION DOSE DELIVERED: manan Nova=14.6 mGy
[2025-01-30] MEDS: Barium Sulfate 700 MG TAB PO (10:04)
[2025-01-30] MEDS: Barium Sulfate 98% W/W 140 ML BTL PO (10:05)
== END 2025-01-30 03:46 ==
LOC: DI 03:26
PROVIDERS: PCP Family Medicine; Visit Provider Student in an Organized Health Care Education/Training Program
DX: K44.9 Diaphragmatic hernia without obstruction or gangrene (principal); K21.00 Gastro-esophageal reflux disease with esophagitis, without bleeding
CPT/HCPCS: 74221; J3490

== ENCOUNTER 2025-01-30 04:25 | Outpatient (CLI) | payer MEDICARE, SELFPAY ==
[2025-01-30 14:28] LABS: HCT 36.2 % (36.0-46.0); HGB 11.9 g/dL (11.2-15.7); MCH 30.2 pg (27.0-33.0); MCHC 32.9 % (32.0-36.0); MCV 92 fL (80-95); MPV 9.1 fL (8.0-11.0); Platelet Count 265 10^3/uL (130-400); RBC 3.94 10^6/uL (3.93-5.22); RDW 13.2 % (11.7-14.6); RDW-SD 45.1 fL; WBC 8.16 10^3/uL (4.4-10.8)
[2025-01-30 14:49] LABS: Anion Gap 8.1 mmol/L (3-11); BUN 32 mg/dL (7-18); CO2 27.9 mmol/L (21.0-32.0); CREATININE 1.4 mg/dL (0.55-1.02); Calcium 9.5 mg/dL (8.5-10.1); Chloride 103 mmol/L (98-107); Estimated GFR 38.27 (mL/min/1.73m2); Glucose 99 mg/dL (74-106); Potassium 3.9 mmol/L (3.5-5.1); Sodium 139 mmol/L (136-145)
[2025-01-30 15:12] LABS: TSH (W/Ref FT4) 0.41 uIU/mL (0.36-3.74)
== END 2025-01-30 04:26 | disposition home or self-care (01) ==
LOC: LBO 04:25
PROVIDERS: PCP Family Medicine; Visit Provider Student in an Organized Health Care Education/Training Program
DX: E03.9 Hypothyroidism, unspecified (principal); E04.2 Nontoxic multinodular goiter; M17.11 Unilateral primary osteoarthritis, right knee; Z01.818 Encounter for other preprocedural examination
CPT/HCPCS: 36415; 80048; 85027; 99024; 84443

== ENCOUNTER 2025-01-30 15:54 | Outpatient (CLI) | payer MEDICARE, SELFPAY ==
--- NOTE | 2025-01-30 13:30 | DI.RAD_ITS ---
Exam(s) XR STANDING ALIGNMENT EXAM: XR STANDING ALIGNMENT CLINICAL HISTORY: TKR Planning. TECHNIQUE: 2D digital imaging was performed. COMPARISON: No exams were available for comparison FINDINGS: 3 views There is metallic density just medial to the right femoral head of questionable significance. Correl ation with any extracorporeal metallic containing density in the patient's pocket is recommended. Ot herwise there are only mild degenerative changes in the hips. At the level in these there is significant narrowing of both lateral compartments, slightly more so o n the right side and there is mild valgus deformity bilaterally. Medial compartments both exhibit re latively preserved height. Ankles appear unremarkable. Talar domes unremarkable. Bone density is n ormal. No osseous lesions. Incidentally noted is barium throughout the colon. IMPRESSION: Degenerative changes in both knees predominately lateral compartments and slightly more so on the rig ht side. DATA REPOSITORY: RADIATION DOSE DELIVERED:
== END 2025-01-30 15:55 | disposition home or self-care (01) ==
LOC: DIORS 15:54
PROVIDERS: PCP Family Medicine; Visit Provider Physician Assistant
DX: M17.11 Unilateral primary osteoarthritis, right knee (principal); Z01.818 Encounter for other preprocedural examination
CPT/HCPCS: 77073

== ENCOUNTER 2025-01-31 01:28 | Outpatient (CLI) | payer MEDICARE, SELFPAY ==
--- NOTE | 2025-01-31 08:30 | DI.US_ITS ---
APPROVED REPORT EXAM: Comprehensive 2D, Doppler, and color-flow Echocardiogram Patient Location: Out-Patient Fishing Hand: Jimmie Hagen RDCS (AE) Indications: Mitral regurgitation, lightheadedness, hypertension Other Information Study Quality: Adequate Conclusion Normal left ventricular wall thickness and chamber size. Ejection fraction is 60%. Wall motion is n ormal Normal right ventricular size and function Mildly enlarged left atrium. Normal right atrial size Aortic valve is sclerotic and trileaflet without stenosis or regurgitation Mitral annular calcification. Mild to moderate mitral regurgitation Normal estimated right ventricular systolic pressure 21 mmHg Wall motion Left Ventricle Left ventricle is mildly dilated. The left ventricular systolic function is normal. The left ventricu lar ejection fraction is within the normal range. There is normal left ventricular wall thickness. Th ere is normal LV segmental wall motion. There is no ventricular septal defect visualized. LVEF is 60% . Right Ventricle The right ventricle is normal size. The right ventricular systolic function is normal. Atria Left atrium is mildly dilated. The right atrium size is normal. The interatrial septum is intact with no evidence for an atrial septal defect. Aortic Valve The aortic valve is sclerotic. Aortic valve is trileaflet. There is no aortic valvular stenosis. No a ortic regurgitation is present. Mitral Valve Moderate mitral annular calcification. No evidence of mitral valve stenosis. Mild to moderate mitral regurgitation. Tricuspid Valve The tricuspid valve is normal in structure. There is no tricuspid valve stenosis. Mild tricuspid regu rgitation. The RVSP is 21.3 mmHg. Pulmonic Valve The pulmonary valve is normal in structure. There is no pulmonic valvular stenosis. There is no pulmo seun valvular regurgitation. Great Vessels The aortic root is normal in size. Ascending aorta is not well visualized. Aortic arch is normal in c aliber. IVC is normal in size and collapses >50% with inspiration. Pericardium There is no pericardial effusion. 2D Dimensions IVSD d PLAX 0.68 cm F: 0.6-1.0 Ao Root d 2.52 cm F: 2.7 - 3.3 LVPW d PLAX 0.69 cm F: 0.6 - 1.0 LVID d PLAX 5.53 cm F: 3.8 - 5.2 LVDs 3.73 cm F: 2.2 - 3.5 LV EF Teichholz 60.4 % FS 32.60 % LV EDV (Teich) 149.2 mL LV ESV (Teich) 59.1 mL Stroke Vol Index (Teich) 60.86 M-Mode TAPSE 2.47 cm (M/F) >1.7 Auto EF LV EDV A4C 94.5 mL LV EDV A2C 85.1 mL LV EDV BP 90.2 mL LV ESV A4C 37.8 mL LV ESV A2C 33.8 mL LV ESV BP 35.8 mL LVEF(%) A4C 60.0 % LVEF(%) A2C 60.3 % LVEF(%) BP 60.3 % LV SV A4C 56.7 ml LV SV A2C 51.3 ml LV SV BP 54.4 ml LV CO A4C 3.4 L/min LV CO A2C 3.2 L/min LV CO BP 3.3 L/min HR A4C 59.29 BPM HR A2C 62.94 BPM LV EDV Index (BP) LA Volume LA Length A4C 3.9 cm LA Length A2C 4.8 cm LA Area A4C s 13.19 cm2 LA Area A2C s 11.46 cm2 LA Vol A4C A-L 38.12 mL LA Vol A2C A-L 23.10 mL LA Vol Biplane A-L 33.1 mL LA Vol/BSA A4C A-L LA Vol/BSA A2C A-L LA Vol/BSA BP A-L 22.4 mL/m2 LA Vol A4C MOD 35.3 mL LA Vol A2C MOD 22.2 mL LA Vol BP MOD 30.7 mL RA Volume RA Area A4C 4.6 cm2 RA ESV A4C (A-L) 5.4mL RA Vol/BSA A4C A-L RA Length A4C 3.3 cm RA ESV A4C (MOD) 5.0mL LV Diastology MV E' medial 0.064 (>0.07 m/s) MV E Vmax 1.02 (0.4-1.3 m/s) MV E/E' MED 15.90 (<14) MV A Vmax 1.15 (0.4-1.3 m/s) MV E' lateral 0.058 (>0.1 m/s) E/A Ratio 0.9 MV E/E' LAT 17.54 (<14) MV E' Average 0.061 m/s MV E/E'(average) 16.68 Aortic Valve AoV Vmax 1.18 m/s LVOT Vmax 1.20 m/s AoV Peak Grad 5.6 mmHg LVOT Peak Grad 5.8 mmHg AoV Area (Vmax) 2.03 cm2 LVOT VTI 0.303 m AoV VTI 0.304 m LVOT Mean Grad 2.7 mmHg AoV Mean Hussein. 0.81 m/s LVOT SV 60.54 mL AoV Mean Grad 2.9 mmHg LVOT Diam s 1.55 cm AoV Area (VTI) 1.99 cm2 AV Regurg Peak Gr. 5.58 mmHg Velocity Ratio 1.02 Mitral Valve MV DT 233 (160-240 msec) MV Vmax TIPS 1.20 m/s MV Mean Grad 2.4 (<2mmHg) MV VTI 0.384 m Pulmonary Valve PV Vmax 1.06 (0.5-1.5 m/s) RVOT Vmax 0.90 m/s PV Peak Grad 4.5 mmHg RVOT Peak Gr. 3.3 mmHg PV Mean Hussein 0.79 m/s RVOT VTI 0.225 m PV Mean Grad 2.7 mmHg RVOT Mean Gr. 1.9 mmHg Tricuspid Valve RA Pressure 3.00 mmHg TR Vmax 2.14 m/s TR Peak Grad 18.3 mmHg RVSP (TR) 21.3 mmHg
== END 2025-01-31 01:48 ==
LOC: DI 01:28
PROVIDERS: PCP Family Medicine; Visit Provider Internal Medicine Cardiovascular Disease
DX: I34.0 Nonrheumatic mitral (valve) insufficiency (principal); I10 Essential (primary) hypertension; R42 Dizziness and giddiness
CPT/HCPCS: 93306

== ENCOUNTER 2025-02-20 07:07 | Day surgery (SDC) | payer MEDICARE, SELFPAY ==
[2025-02-20 07:20] VITALS: BP 177/65; PULSE 64; RESP 20; TEMP 36.5; O2SAT 100
--- NOTE | 2025-02-20 07:24 | PDOC.DSDIS_ITS ---
Date of service: 02/20/25 Discharge Plan Disposition Patient Disposition: Home Condition: Good Discharge Details Reason For Visit: R TKR Attending Provider: Jadiel Goff Primary Care Provider: Erika Hernandez Home Meds and New Rx's Prescriptions: New acetaminophen 500 mg tablet 1,000 mg PO TID Qty: 90 3RF aspirin 81 mg tablet,delayed release (DR/EC) 81 mg PO BID Qty: 60 0RF dexamethasone 4 mg tablet 4 mg PO DAILY Qty: 2 0RF docusate sodium 100 mg capsule 100 mg PO BID PRNQty: 14 0RF meloxicam 15 mg tablet 15 mg PO DAILY Qty: 30 2RF gabapentin 300 mg capsule 300 mg PO QHS Qty: 14 0RF oxycodone 5 mg tablet 5 mg PO Q4H PRNQty: 18 0RF Continued triamcinolone acetonide 0.025 % cream 1 applic topical BID Qty: 80 0RF hydrochlorothiazide 12.5 mg tablet 12.5 mg PO DAILY Qty: 90 3RF diclofenac sodium [Arthritis Pain (diclofenac)] 1 % gel 4 g topical QID Rx Instructions: apply to single knee, ankle, foot; for foot includes sole/toes/top of foot sertraline 50 mg tablet 25 mg PO HS Qty: 30 2RF pantoprazole 40 mg tablet,delayed release (DR/EC) 40 mg PO DAILY Qty: 30 2RF losartan 100 mg tablet 100 mg PO DAILY Qty: 90 3RF pravastatin 40 mg tablet 40 mg PO DAILY Qty: 90 3RF meloxicam 15 mg tablet 15 mg PO DAILY Qty: 30 1RF Rx Instructions: Take one tablet daily for pain and inflammation Discontinued acetaminophen [Tylenol] 325 MG tablet 2 tab PO Q4H PRN Discharge Instructions Additional Instructions: Total Knee Discharge Instructions Activity: The most important activity is to walk and to work on gentle motion (both flexion and extension). You should try to take short walks a few times a day. It is important that when resting you work on keeping the knee straight. Avoid putting a pillow behind the knee as this will encourage flexion. Work on range of motion exercises as provided by Physical Therapy. - Start outpatient physical therapy within 2 weeks. - You should wear the [place] hose on both legs for 2 weeks. You may remove these at night. You may also use any compression sock in place of the [place] hose. - Utilize [employer] to review exercises, see videos on exercises and obtain basic information pertaining to your surgery and your recovery. Dressing: Remove the [place] wrap by 2 days after your surgery and put on the [place] stocking given to you from the hospital. Keep the surgical dressing (underneath the [place] wrap) in place for at least one week. After the first week it may be removed and replaced with light gauze and tape or nothing. The wound and dressing may get wet after 3 days but avoid soaking the dressing or otherwise it will need to be changed. Many people prefer covering the dressing with cling wrap (saran wrap) to minimize it from getting soaked. If it gets wet, just pat dry. If it starts to peel off then it will need to be changed. Medications: - You should take Tylenol and anti-inflammatory meloxicam as your primary pain control medications. - You have been prescribed a stronger pain medication Oxycodone for breakthrough pain, take as needed as prescribed. - You will continue your Pantoprozole to help reduce stomach acid and reflux. - You have been prescribed Gabapentin to take at night for restlessness and nerve pain. - You will be taking Aspirin 81mg twice a day for DVT prevention unless instructed otherwise. - You have also been prescribed Decadron to take to control post-operative nausea and pain. You will start this tomorrow. - If you have constipation you should take Colace or Miralax (both [id number]). It takes most people 3-4 days to have a bowel movement. Follow-up: 2 weeks If you have any acute concerns or questions, please do not hesitate to contact the office at [phone]. You may contact Dr. Goff with any questions after hours through the hospital at [phone] or on his cell phone at [phone]. Referrals: Jadiel Goff MD [ [facility] STAFF PHYSICIAN] - Equipment/Supplies: Walker Activity:: Activity as Tolerated Shower/Bathe:: 72 hours Diet:: As Tolerated Discharge Orders Discharge Orders: Discharge Order (Routine); Ordered 02/20/25 Ordered By: Gaston Fountain DS: Diagnosis Discharge Diagnosis (1) Primary localized osteoarthritis of right knee: Status: Chronic
[2025-02-20] MEDS: Acetaminophen 500 MG TAB 1000 MG PO (07:40)
[2025-02-20] MEDS: Meloxicam 15 MG TAB PO (07:40)
[2025-02-20] MEDS: Gabapentin 300 MG CAP PO (07:40)
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
[2025-02-20 08:20] VITALS: BMI 25.2
[2025-02-20 09:08] VITALS: BP 177/58; PULSE 62; RESP 17; TEMP 36.1; O2SAT 97
[2025-02-20] MEDS: Lactated Ringers 1,000 ML 80 ML IV (09:08)
--- NOTE | 2025-02-20 09:16 | ROE_ITS ---
Operative Note Operative Note PRE-OP DIAGNOSIS: Right Knee Arthritis with Valgus Deformity POST-OP DIAGNOSIS: same PROCEDURE: Right Total Knee Replacement with Intraoperative Navigation SURGEON: Jadiel Goff ELECTRIC DISTRIBUTION CHECKER: Jennifer Fountain ANESTHESIA TYPE: Spinal Refer to Anesthesia Record ESTIMATED BLOOD LOSS: 50 PATHOLOGY: none sent TOURNIQUET TIME: 0 COMPLICATIONS: None Patient was transported to: PACU Patient's condition: stable Implants: 1. Depuy Attune Cementless Cruciate Retaining Femoral Component, Size 6 2. Depuy Attune Cementless Fixed Bearing Tibial Component, Size 6 3. Depuy Attune 6x5mm CR/FB Poly 4. Depuy Attune Patellar Component, Size 38 Indications: I have seen Gayathri in clinic for symptoms of bilateral, right worse than left, knee arthritis, confirmed with radiographic findings. Gayathri has exhausted nonoperative methods and was having significant limitations in daily function and desired better function and less pain. I discussed the technical details of a knee replacement. I explained the risks of the procedure to include, but not limited to, bleeding, infection, pain, stiffness, fracture, damage to nerves and vessels, damage to muscles and tendons, loosening, need for repeat procedure, blood clot and cardiopulmonary demise. Despite these risks, she elected to proceed. Findings: There was significant signs of arthritis throughout the knee involving all 3 compartments. Procedure Description: Gayathri was greeted in the preoperative holding area where the correct side was identified and marked. The consent was reviewed with the patient and signed. The history and physical was updated. All questions were answered. Preoperative medications were administered: Acetaminophen 1000mg, Celebrex 400mg, and Gabapentin 300mg. An adductor canal block was then administered by the anesthesia team in the DSU. She was taken back to the operating room. A spinal anesthestic was then administered. The patient was placed into the supine position on the operating room table. Posts were placed for positioning during the procedure. All bony prominences were well padded. Prophylactic antibiotics in the form of Cefazolin were administered. 1g of Tranxemic Acid was given intravenously within 30 minutes of incision. The right leg was then prepped with Chloraprep and draped in a standard fashion with impervious stockinette. A second prep with Chloraprep was performed prior to application of Iodine impregnated skin protection. A timeout to confirm correct identity, side and site, procedure, allergies, anesthesia, and medical concerns was performed. With the knee in some flexion, a midline incision was made overlying the knee. Full thickness skin flaps were raised once the extensor mechanism was encountered. These were raised medially and laterally. Any bleeding was con trolled with electrocautery. Once the extensor mechanism was fully exposed, a medial parapatellar arthrotomy was performed in a flexed position. All bleeding from the arthrotomy and the geniculate arteries was coagulated. A medial subperiosteal peel was performed with electrocautery to the midcoronal plane. The fat pad was removed while keeping the patellar tendon protected. The anterior distal femur synovium was removed for later visualization. The ACL and PCL were resected and the anterior horn of the lateral meniscus was transected. The knee was then flexed with the patella everted. Large osteophytes from the tibia were removed. Large osteophytes from the femur were removed. A single starting pin was then placed 1cm anterior to the PCL insertion and the notch in the direction of the femoral head. The OrthoAlign device was applied over the pin. It was oriented to be in line with the epicondylar axis and the trochlear groove. It was then pinned into place. The navigation computer was then turned on and calibrated. The distal femur cut was set at 0.5 degrees valgus and 3.5 degrees flexion. The distal femur cutting guide then was positioned for a 9mm cut. The distal femur was cut with an oscillating saw while protecting the soft tissues. The tibia was then addressed. The OrthoAlign device was placed over the tibial tubercle and medial tibia and secured into position. Once again, OrthoAlign was calibrated and then set for a 1.5 degree varus cut and 5.5 degrees of posterior slope. With this locked into position, the cut thickness stylus was used to a ssess cut thickness. The lateral side, most involved side, was set for a 5-6mm cut, which corresponded to 7-8mm medially. This was then held in position and pinned into place with 2 additional pins and a cross pin for stability. The medial and lateral collateral ligaments were protected and the cut was performed. With this completed, it was assessed and noted to be of appropriate dimensions. The guide and OrthoAlign was removed. A spacer block was inserted and the knee was brought into extension to ensure enough space was present. . The Orthoalign gap balancing device was then placed in extension. This was used to ensure that the ligaments were properly balanced with up to 2 to 3 mm laxity laterally compared medially. The extension gap was measured as 18mm. The knee was then brought into 90 degrees of flexion and the ligament administrative support specialist was once again placed. Under the same amount of force the flexion gap was measured. The Attune specific jig was placed and the flexion gap was made to match the extension gap. The femur was then sized as a size 6. The 4-in-1 cutting guide was the placed. An kelvin wing was used to confirm appropriate position of the anterior cut to avoid notching. This cutting guide was ensured to be flush on the cut surface and then pinned into place with headed pins. While protecting the soft tissues, quad tendon, and collateral ligaments, the anterior and posterior cuts were performed with a saw. The central two pins were removed and the posterior and anterior chamfers were cut next. The notch-cutting guide was placed. This was pinned to lateralize the femoral component as much as possible while keeping it flush on the cut surface. This was then pinned into position. A saw was used to make the notch cut. A rasp smoothed the cut surfaces. The medial and lateral menisci were removed. A trial femoral component was then inserted, impacted down to the cut surfaces, and the lug holes were drilled. A provisional trial tibial component was placed and the knee was brought through range of motion. There was noted to be excellent extension and flexion. There was no significant instability. The patella was tracking without thumbs. A size 5mm polyethylene component provided the best range of motion and stability with less than 2mm gapping with medial and lateral stress and full extension without significant hyperextension. The tibial cut surface was fully exposed. The tibia was then sized as a 6. The tibia had been previously marked during trialing to correspond to the center of the tibial component to help with rotation. The trial was aligned to this jennifer, approximately rotated to the medial 1/3rd of the tibial tubercle. The trial was pinned into place. The tibia was prepared with a reamer and a keel punch and lug holes. The knee was then brought into extension and the patella was measured as 22mm. Using the patellar clamp and cut guide, this was resected to a flat surface with at least 13mm of thickness remaining. The size 38 patella fit the best. This was oriented and then clamped into position. The lugs were drilled. The trial components were removed. The final components were opened on the back table. The periosteal and capsular tissues, especially posteriorly, around the knee were then systematically injected with a periarticular cocktail consisting of 246mg of Ropivacaine, 0.5mg of Epinephrine, 0.08mg of Clonidine, and 30mg of Ketorolac, diluted to 100cc. On the back table, with the implants opened, the cement was mixed. One batch of high viscosity cement was prepared with vacuum assistance. After the cement was ready a small amount was placed on the cut surface of the patella and the patellar button was clamped into position and held. While the cement was hardening, the cementless knee components were placed. Starting with the tibial component, the tibia was subluxed anteriorly and the lug holes of the component were lined up. The tibia was then impacted with an impactor and mallet until the tibial component was in contact with the tibia. Then, the femoral component was inserted. The lug holes were aligned and the component was impacted into position. The final polyethylene component was inserted. The knee was irrigated with Surgiphor Betadine solution. This was allowed to sit in the knee for 3 minutes and then it was thoroughly irrigated out with saline. After the cement had finally cured, approximately 15min, the clamp was removed from the patella and the knee was taken through range of motion. The patella was tracking with a no-thumbs technique. The capsule was then reapproximated with a No. 1 Vicryl at multiple locations. The capsule was finally closed with a No. 2 Stratafix, barbed suture. Deep tissues were then reapproximated with 0 Vicryl and 2-0 Vicryl. The skin was closed with a running 3-0 Monocryl in a subcuticular fashion. This was reinforced with skin glue. A Mepilex silver dressing was applied along with a [id number] ERUM wrap. A CryoCuff was applied. Gayathri was transferred to the hospital bed without difficulty an suffering no apparent complication. Gayathri has a good prognosis. Physical therapy will start today and without restrictions, weight-bearing as tolerated. Aspirin 81mg BID will be used for DVT prophylaxis. Date of Procedure: 02/20/25
--- NOTE | 2025-02-20 09:22 | W.ANESNERVE ---
Nerve Block Single Injection Procedure Date and Time Date Performed: 02/20/25 Procedure Start: 09:12 Location Where Procedure Performed Procedure Location: Day Surgery Unit Reason Performed: Postoperative Analgesia Requesting Provider: Jadiel Goff Timeout Performed Timeout Performed: Yes Monitoring Used ECG, Blood Pressure and SpO2 Sterility Sterility: Hand Hygiene, Surgical Cap, Surgical Mask, Sterile Gloves and Chlorhexidine Sedation Given During Procedure Sedation Given (Indicate Dose Given): Precedex IV Dose:: 8 mcg Patient Mental Status Patient Mental Status: Sedate with meaningful communication Nerve Block 1st Nerve Block: Laterality: Right Block Type: Adductor Canal Ultrasound Image Saved?: Yes Needle / Catheter Used: 100mm SonoPlex II Local Anesthetic Bolus (Indicate Dose Given): Lidocaine used for local infiltration of skin, Injected in 3-5ml increments after negative blood aspiration and Bupivacaine 0.25% Dose:: 10 ml Additives (Indicate Dose Given): Normal Saline Ultrasound: Sterile probe cover and gel used Nerve Stimulator: Supplement to Ultrasound use and No twitch or parasthesia noted < 0.5 mA Paresthesia: None Procedure Tolerated: No Complications and Patient tolerated well Procedure Outcome: Successful Performed By: iMchael Rose
[2025-02-20] MEDS: ceFAZolin 2 GM/50 ML BAG IVPB (09:34)
[2025-02-20] MEDS: TRANEXAMIC ACID/SOD. CHL. 1,000 MG/100 ML BAG 600 MG IVPB (09:48)
[2025-02-20 11:16] VITALS: BP 113/55; PULSE 58; RESP 18; TEMP 36.2; O2SAT 98
[2025-02-20 11:49] VITALS: BP 118/41; PULSE 57; RESP 20; TEMP 36.4; O2SAT 98
[2025-02-20] MEDS: Tranexamic Acid 650 MG TAB 1300 MG PO (12:47)
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
--- NOTE | 2025-02-20 13:42 | W.ANESPOSTOP ---
Postoperative Evaluation Date, Time and Location Date Performed: 02/20/25 Time Performed: 13:42 Patient Location: Day Surgery Unit Vital Signs Most Recent Imported Vital Signs: Most Recent Vital Signs Temp Pulse Resp BP Pulse Ox 36.4 C L 57 L 20 118/41 L 98 02/20/25 11:49 02/20/25 11:49 02/20/25 11:49 02/20/25 11:49 02/20/25 11:49 Pain Score Most Recent Pain Score: Most Recent Pain Score Pain Level 0 02/20/25 11:49 Assessment Mental Status: Awake (Alert & Oriented to Patient Baseline) Airway and Respiratory Function: Patent airway with normal (patient baseline) respiratory exam Cardiovascular Function: Hemodynamically Stable Hydration Status: Adequately Hydrated Nausea & Vomiting: No Nausea or Vomiting Pain: Pt. Denies Any Pain Peripheral Nerve Block: Regional nerve block not resolved at time of post operative discharge
== END 2025-02-20 13:45 | disposition home or self-care (01) ==
PROVIDERS: PCP Family Medicine; Visit Provider Student in an Organized Health Care Education/Training Program
PROC: (CPT 27447; principal; 2025-02-20 09:30)
DX: M17.11 Unilateral primary osteoarthritis, right knee (principal); M21.061 Valgus deformity, not elsewhere classified, right knee; G89.18 Other acute postprocedural pain
CPT/HCPCS: 20985; 27447; 64447; 97110; 97161; 97530; C1776; J0665; J0690; J1100; J2003; J2401; J2405; J2704

== ENCOUNTER 2025-03-07 14:36 | Outpatient (CLI) | payer MEDICARE, SELFPAY ==
--- NOTE | 2025-03-07 13:45 | DI.RAD_ITS ---
Exam(s) XR KNEE RT 1V XR STANDING ALIGNMENT EXAM: XR STANDING ALIGNMENT CLINICAL HISTORY: 1ST POST OP S/P R TKA. TECHNIQUE: 2D digital imaging was performed. Standing AP views were performed from the pelvis throu gh the ankles. COMPARISON: CR XR STANDING ALIGNMENT from 01/30/2025 CR XR KNEE RT 1V from 03/07/2025 FINDINGS: BONES: No acute fracture is present. No bony destructive lesion is seen. Leg length discrepancy: No significant overall leg length discrepancy. JOINTS: Knees: A right total knee prosthesis has been placed since the previous exam. The alignmen t is satisfactory. There is stable narrowing of the lateral femoral tibial joint space of the left k nee with periarticular spurring. There is mild valgus angulation. The ankle joints are unremarkable. The hip joints show mild degenerative changes, right greater than left. SOFT TISSUE: Normal. IMPRESSION: Status post placement of a right knee prosthesis. Degenerative changes of the lateral femoral tibial joint of the left knee.. No significant leg length discrepancy. DATA REPOSITORY: RADIATION DOSE DELIVERED:
== END 2025-03-07 14:37 | disposition home or self-care (01) ==
LOC: DIORS 14:37
PROVIDERS: PCP Family Medicine; Referring Provider Family Medicine; Visit Provider Student in an Organized Health Care Education/Training Program
DX: Z96.651 Presence of right artificial knee joint (principal); Z47.1 Aftercare following joint replacement surgery
CPT/HCPCS: 99024; 73560; 77073

== ENCOUNTER → 2025-04-04 13:46 | Outpatient (BNVA) | payer MEDICARE, SELFPAY | PROVIDERS: PCP Family Medicine; Referring Provider Family Medicine; Visit Provider Physician Assistant | DX: Z47.1 Aftercare following joint replacement surgery (principal); Z96.651 Presence of right artificial knee joint | CPT/HCPCS: 99024 ==

== ENCOUNTER 2025-04-14 07:21 | Inpatient (IN) | payer MEDICARE, SELFPAY ==
[2025-04-14 07:24] VITALS: BP 172/62; PULSE 86; RESP 18; TEMP 36.3; O2SAT 99
--- NOTE | 2025-04-14 07:30 | DI.RAD_ITS ---
Exam(s) XR HAND RT COMPLETE EXAM: XR HAND RT COMPLETE CLINICAL HISTORY: animal bite. TECHNIQUE: 2D digital imaging was performed. Three views. COMPARISON: No exams were available for comparison FINDINGS: BONES: No acute fracture is present. No bony destructive lesion is seen. JOINTS: No dislocation present. Degenerative changes greatest at the interphalangeal joints. SOFT TISSUE: Soft tissue swelling of the dorsum of the hand as well as thumb and index finger. IMPRESSION: Soft tissue swelling. No evidence of fracture. The preliminary [facility] report was reviewed. DATA REPOSITORY: RADIATION DOSE DELIVERED:
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
[2025-04-14 08:09] LABS: Abs Immature Grans 0.05 10^3/uL (0.0-0.06); Absolute Basophil Count 0.06 10^3/uL (0.0-0.2); Absolute Eosinophil Count 0.15 10^3/uL (0.0-0.7); Absolute Lymphocyte Count 1.18 10^3/uL (1.2-3.4); Absolute Monocyte Count 1.28 10^3/uL (0.1-0.8); Absolute Neutrophil Count 8.96 10^3/uL (1.2-6.7); Basophils % 0.5 %; Eosinophils % 1.3 %; HCT 30.8 % (36.0-46.0); HGB 10.1 g/dL (11.2-15.7); Immature Grans % 0.4 %; Lymphocytes % 10.1 %; MCH 29.8 pg (27.0-33.0); MCHC 32.8 % (32.0-36.0); MCV 91 fL (80-95); MPV 9.2 fL (8.0-11.0); Neutrophils % 76.7 %; Platelet Count 312 10^3/uL (130-400); RBC 3.39 10^6/uL (3.93-5.22); RDW 14.2 % (11.7-14.6); RDW-SD 47.5 fL; WBC 11.68 10^3/uL (4.4-10.8)
[2025-04-14 08:10] LABS: ESR 29 mm/hr (0-30)
[2025-04-14 08:23] LABS: ALT 29 U/L (14-59); AST 22 U/L (15-37); Albumin 3.7 g/dL (3.4-5.0); Alkaline Phosphatase 79 U/L (46-116); Anion Gap 10.9 mmol/L (3-11); BUN 35 mg/dL (7-18); Bilirubin, Total 0.7 mg/dL (0.2-1.0); C-Reactive Protein 3.15 mg/dL (<or=0.5); CO2 23.1 mmol/L (21.0-32.0); CREATININE 1.5 mg/dL (0.55-1.02); Calcium 9.2 mg/dL (8.5-10.1); Chloride 103 mmol/L (98-107); Estimated GFR 35.23 (mL/min/1.73m2); Glucose 113 mg/dL (74-106); Potassium 3.7 mmol/L (3.5-5.1); Sodium 137 mmol/L (136-145); Total Protein 7.4 g/dL (6.4-8.2)
--- NOTE | 2025-04-14 08:44 | DI.[facility]_ITS ---
PROCEDURE INFORMATION: Exam: XR Right Hand Exam date and time: 04/14/2025 8:39 AM Age: 79 years old Clinical indication: Other: Animal bite TECHNIQUE: Imaging protocol: Radiologic exam of the right hand. Views: 3 or more views. COMPARISON: NM BONE SCAN WHOLE BODY GRP 09/05/2019 1:42 PM FINDINGS: Bones/joints: Severe joint space narrowing and osteophyte formation in the DIP joints and PIP joints of the fingers and IP joint of the thumb consistent with degenerative changes. Erosion in the D IP joint and PIP joint of the little finger. There is no evidence of acute fracture.There is no evidence of malalignment or dislocation. Subluxation of the IP joint likely chronic Degenerative changes in the radiocarpal joint and thumb carpometacarpal joint Soft tissues: Soft tissue swelling of the fingers and thumb IMPRESSION: 1. Severe joint space narrowing and osteophyte formation in the DIP joints and PIP joints of the fingers and IP joint of the thumb consistent with degenerative changes. 2. There is no evidence of acute fracture.There is no evidence of malalignment or dislocation. Dictated and Authenticated by: Donald Nguyen MD. Orderin Lloyd Avilez MD
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
[2025-04-14 08:50] LABS: Hemoglobin A1C 5.5 % (<5.7)
[2025-04-14] MEDS: Diph,Pertuss(Acell),Tet Vac/Pf 0.5 ML SYR IM (09:07)
[2025-04-14] MEDS: AMPICILLIN/SULBACTAM 3 GM in Normal Saline 100 ML IVPB ×3 (09:07→20:53)
[2025-04-14 09:20] VITALS: BP 175/71; PULSE 63; RESP 20; TEMP 36.5; O2SAT 100
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
--- NOTE | 2025-04-14 09:52 | NUR.NOTE ---
Faxed animal bite report form to [facility] Clerk. Left message for health officer regarding the report. Nursing Note:
[2025-04-14 09:53] VITALS: BP 181/67; PULSE 73; RESP 18; TEMP 36.7; O2SAT 96
[2025-04-14] MEDS: Acetaminophen 325 MG TAB PO ×3 (11:23→22:54)
[2025-04-14 11:33] VITALS: BP 179/65; PULSE 67; RESP 18; TEMP 36.7; O2SAT 100
[2025-04-14] MEDS: Normal Saline Flush 10 ML SYR IVP ×2 (14:15→20:06)
[2025-04-14 15:13] VITALS: BP 152/67; PULSE 67; RESP 18; TEMP 36.7; O2SAT 100
[2025-04-14] MEDS: hydroCHLOROthiazide 12.5 MG TAB PO (20:03)
[2025-04-14] MEDS: Pantoprazole 40 MG TABCR PO (20:03)
[2025-04-14] MEDS: Pravastatin 40 MG TAB PO (20:04)
[2025-04-14] MEDS: Losartan 50 MG TAB 100 MG PO (20:04)
[2025-04-14] MEDS: Sertraline 25 MG TAB PO (20:04)
[2025-04-15] MEDS: AMPICILLIN/SULBACTAM 3 GM in Normal Saline 100 ML IVPB ×2 (02:58→07:40)
[2025-04-15 05:53] VITALS: BP 147/67; PULSE 61; RESP 18; TEMP 36.2; O2SAT 98
[2025-04-15 06:26] LABS: HCT 30.3 % (36.0-46.0); HGB 10.1 g/dL (11.2-15.7); MCH 30.4 pg (27.0-33.0); MCHC 33.3 % (32.0-36.0); MCV 91 fL (80-95); MPV 9.6 fL (8.0-11.0); Platelet Count 297 10^3/uL (130-400); RBC 3.32 10^6/uL (3.93-5.22); RDW 14.2 % (11.7-14.6); RDW-SD 47.3 fL; WBC 8.57 10^3/uL (4.4-10.8)
[2025-04-15 06:35] LABS: BUN 29 mg/dL (7-18); CREATININE 1.4 mg/dL (0.55-1.02); Calcium 9.2 mg/dL (8.5-10.1); Chloride 102 mmol/L (98-107); Estimated GFR 38.27 (mL/min/1.73m2); Glucose 100 mg/dL (74-106); Magnesium 1.8 mg/dL (1.8-2.4); Potassium 4.1 mmol/L (3.5-5.1); Sodium 138 mmol/L (136-145)
[2025-04-15 06:59] VITALS: BP 141/69; PULSE 64; RESP 16; TEMP 36.8; O2SAT 96
[2025-04-15] MEDS: Meloxicam 15 MG TAB PO (07:40)
[2025-04-15] MEDS: Enoxaparin 40 MG/0.4 ML SYR SC (07:40)
[2025-04-15] MEDS: Normal Saline Flush 10 ML SYR IVP (07:41)
[2025-04-15] MEDS: Acetaminophen 325 MG TAB PO (09:24)
[2025-04-15] MEDS: Amoxicillin 875/Clav. 125 TAB PO (09:56)
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
== END 2025-04-15 11:09 | disposition home or self-care (01) | DRG 603 ==
LOC: ER 08:55 → MS 09:48
PROVIDERS: Admitting Provider Family Medicine; Emergency Provider Emergency Medicine; PCP Family Medicine; Responsible Provider Family Medicine; Visit Provider Family Medicine
DX: L03.113 Cellulitis of right upper limb (principal); F32.A Depression, unspecified; I34.0 Nonrheumatic mitral (valve) insufficiency; I12.9 Hypertensive chronic kidney disease with stage 1 through stage 4 chronic kidney disease, or unspecified chronic kidney disease; N18.30 Chronic kidney disease, stage 3 unspecified; K44.9 Diaphragmatic hernia without obstruction or gangrene; W55.01XA Bitten by cat, initial encounter; K21.00 Gastro-esophageal reflux disease with esophagitis, without bleeding; Z85.118 Personal history of other malignant neoplasm of bronchus and lung; Z79.899 Other long term (current) drug therapy; Z90.2 Acquired absence of lung [part of]; E78.5 Hyperlipidemia, unspecified; M17.0 Bilateral primary osteoarthritis of knee; D64.9 Anemia, unspecified
CPT/HCPCS: 00123; 36415; 80048; 80053; 85027; 85652; 87040; 90471; 90715; 96365; 99285; J1650; 73130; 83036; 83735; 85025; 86140; 99223; 99239; J0295

== ENCOUNTER 2025-05-07 01:25 | Outpatient (CLI) | payer MEDICARE, SELFPAY ==
--- NOTE | 2025-05-07 06:30 | DI.US_ITS ---
Exam(s) US THYROID EXAM: US THYROID CLINICAL HISTORY: Assess for change,multinodular thyroid,e04.2. TECHNIQUE: Ultrasound thyroid performed using standard protocol. COMPARISON: No exams were available for comparison FINDINGS: ISTHMUS: 3.8 mm RIGHT LOBE: Size: 5.7 x 1.8 x 2.2 cm Echogenicity: Normal. Vascularity: Normal. Nodules: There are multiple right thyroid nodules again seen. There are no nodules on the right that warrant biopsy. The largest nodule measures 1.3 x 0.5 x 0.9 cm. LEFT LOBE: Size: 6.1 x 2.3 x 2.6 cm Echogenicity: Normal. Vascularity: Normal. Nodules: There again seen multiple thyroid nodules. The largest is in the inferior pole and measures 2.8 x 1.9 x 2.8 cm. This compares to 2.9 x 1.6 x 2.5 cm on the prior examination. This nodule was biopsied on 12/08/2022. No other nodules are seen on the left that would warrant biopsy. OTHER FINDINGS: None. IMPRESSION: Multiple thyroid nodules. There is a stable previously biopsied nodule in the inferior pole of the left lobe. No other nodules are seen that would warrant biopsy. DATA REPOSITORY:
== END 2025-05-07 01:45 ==
LOC: DI 01:26
PROVIDERS: PCP Family Medicine; Visit Provider Otolaryngology
DX: E04.2 Nontoxic multinodular goiter (principal)
CPT/HCPCS: 76536

== ENCOUNTER 2025-05-17 00:13 | Outpatient (CLI) | payer MEDICARE, SELFPAY ==
[2025-05-17 14:23] LABS: CREATININE 1.4 mg/dL (0.55-1.02); Estimated GFR 38.27 (mL/min/1.73m2)
[2025-05-17] MEDS: Omnipaque 350 MG/ML 500 ML BTL-Imaging package 70 ML IJ (14:33)
[2025-05-17] MEDS: Normal Saline - Diluent 50 ML VIAL IJ (14:34)
--- NOTE | 2025-05-17 14:40 | DI.CT_ITS ---
Exam(s) CT CHEST W EXAM: CT CHEST W CLINICAL HISTORY: annual surveillance, NEOPLASM LUNG, S/P LOBECTOMY TECHNIQUE: Imaging Protocol: Axial computed tomography images with coronal and sagittal reformatted images were created and reviewed. Computer aided detection (CAD) was utilized. CONTRAST MATERIAL: Intravenous: Omnipaque 350 Contrast volume:70 ml. COMPARISON: CT CT CHEST W from 03/09/2024 FINDINGS: Pulmonary parenchyma: Post surgical changes are noted in the right upper lobe. No consolidation. No dominant measurable mass. Mild emphysematous changes are again noted in the upper lobes. Stable 6 millimeter nodule posterior left lower lobe. Tracheobronchial tree: No bronchiectasis or mucous plugging. Mediastinum and Lexi: No dominant adenopathy or fluid collection. Tiny hiatal hernia. Pleura: No effusion. No pneumothorax. Heart: The heart is not dilated. Coronary artery calcifications are seen. Aorta: Thoracic aorta non-dilated. Mild to moderate atherosclerotic changes. Pulmonary arteries: No gross evidence of emboli. Upper abdomen: No acute findings. Cholecystectomy. Bones: No compression fractures. No lytic or blastic lesions.Degenerative changes in the spine. Soft tissues: Unremarkable. IMPRESSION: Stable 6 millimeter nodule at the left lower lobe. Postsurgical changes in the right upper lobe. No evidence of mass or adenopathy. RADIATION DOSE DELIVERED: Total DLP DATA REPOSITORY: All CT scans at this facility are submitted to the National Radiology Data Registry (NRDR) Dose Index Registry (DIR) with the [employer] ([employer]). RADIATION OPTIMIZATION: All CT scans at this facility use at least one of these dose optimization techniques: automated exposure control; mA and/or kV adjustment per patient size (includes targeted exams where dose is matched to clinical indication); or iterative reconstruction.
== END 2025-05-17 00:33 ==
LOC: DI 00:13
PROVIDERS: PCP Family Medicine; Visit Provider Family Medicine
DX: Z08 Encounter for follow-up examination after completed treatment for malignant neoplasm (principal); Z90.2 Acquired absence of lung [part of]; Z85.118 Personal history of other malignant neoplasm of bronchus and lung
CPT/HCPCS: 71260; 82565

== ENCOUNTER → 2025-05-23 13:08 | Outpatient (BNVA) | payer MEDICARE, SELFPAY | PROVIDERS: PCP Family Medicine; Visit Provider Physician Assistant | DX: Z47.1 Aftercare following joint replacement surgery (principal); Z96.651 Presence of right artificial knee joint | CPT/HCPCS: 99213 ==

== ENCOUNTER 2025-06-29 10:12 | Outpatient (REF) | payer MEDICARE, SELFPAY ==
[2025-06-29 16:51] LABS: Abs Immature Grans 0.02 10^3/uL (0.0-0.06); HCT 35.4 % (36.0-46.0); HGB 11.5 g/dL (11.2-15.7); Immature Grans % 0.3 %; MCH 29.9 pg (27.0-33.0); MCHC 32.5 % (32.0-36.0); MCV 92 fL (80-95); MPV 10.2 fL (8.0-11.0); Platelet Count 277 10^3/uL (130-400); RBC 3.84 10^6/uL (3.93-5.22); RDW 13.6 % (11.7-14.6); RDW-SD 45.9 fL; WBC 5.85 10^3/uL (4.4-10.8)
[2025-06-29 17:00] LABS: ALT 31 U/L (14-59); AST 30 U/L (15-37); Albumin 4.0 g/dL (3.4-5.0); Alkaline Phosphatase 91 U/L (46-116); Anion Gap 9.1 mmol/L (3-11); BUN 30 mg/dL (7-18); Bilirubin, Total 0.5 mg/dL (0.2-1.0); CO2 27.9 mmol/L (21.0-32.0); Calcium 9.2 mg/dL (8.5-10.1); Chloride 97 mmol/L (98-107); Estimated GFR 41.83 (mL/min/1.73m2); Glucose 96 mg/dL (74-106); Potassium 4.3 mmol/L (3.5-5.1); Sodium 134 mmol/L (136-145); Total Protein 7.2 g/dL (6.4-8.2)
[2025-07-01 10:15] LABS: Lyme Ab w Rflx to Lyme Confirm Negative (Negative)
[2025-07-02 22:09] LABS: B. miyamotoi PCR Negative (Negative); Babesia divergens/MO-1 Negative (Negative); Ehrlichia muris eauclairensis Negative (Negative)
== END 2025-06-29 10:13 | disposition home or self-care (01) ==
LOC: LBN 10:12
PROVIDERS: PCP Family Medicine; Visit Provider Nurse Practitioner Family
DX: T14.90XA Injury, unspecified, initial encounter (principal); W57.XXXA Bitten or stung by nonvenomous insect and other nonvenomous arthropods, initial encounter
CPT/HCPCS: 80053; 87798; 85025; 86618

== ENCOUNTER 2025-10-25 09:10 | Outpatient (CLI) | payer MEDICARE, SELFPAY ==
[2025-10-25 09:33] LABS: Prot/Crea Ur Ratio 0.11 mg/mg Cr
[2025-10-25 09:34] LABS: ALT 20 U/L (10-49); AST 31 U/L (<34); Albumin 4.2 g/dL (3.2-5.0); Alkaline Phosphatase 67 U/L (46-116); Anion Gap 8.2 mmol/L (3-11); BUN 24 mg/dL (9-23); Bilirubin, Total 0.80 mg/dL (0.2-1.2); CO2 26.8 mmol/L (20.0-31.0); Calcium 9.2 mg/dL (8.3-10.6); Chloride 103 mmol/L (98-107); Glucose 85 mg/dL (74-106); Potassium 3.9 mmol/L (3.5-5.1); Sodium 138 mmol/L (136-145); Total Protein 7.2 g/dL (5.7-8.2)
[2025-10-25 09:36] LABS: Vitamin D 25 Total 39 ng/mL (30-100)
[2025-10-25 09:37] LABS: Ferritin 58 ng/mL (7-271)
== END 2025-10-25 09:11 | disposition home or self-care (01) ==
LOC: LBO 09:11
PROVIDERS: PCP Family Medicine; Visit Provider Family Medicine
DX: N18.31 Chronic kidney disease, stage 3a (principal)
CPT/HCPCS: 36415; 80053; 82306; 82565; 82728; 83970; 84156